=== PATIENT | male | born 1990 | race Two or more races ===

== ENCOUNTER 2018-08-14 12:45 | Emergency (ER) | payer SELFPAY ==
[~2018-08-14] VITALS: Ht 170.2 cm; Wt 73.0 kg
[2018-08-14] MEDS ORDERED: LACTULOSE 20G/30ML UDC PO ONE (17:45)
[2018-08-14] MEDS ORDERED: MAGNESIUM CITRATE 300ML SOLUTION PO ONE ×2 (17:45→21:15)
[2018-08-14] MEDS ORDERED: MINERAL OIL 30ML BOTTLE PO ONE (17:45)
[2018-08-14 18:52] LABS: BASOPHILS % 0.2 % (0.0-2.0); EOSINOPHILS % 0.6 % (0.0-5.0); HEMATOCRIT. 45.7 % (42.0-52.0); HEMOGLOBIN. 14.9 g/dL (14.0-18.0); LYMPHOCYTES % 12.1 % (20.0-50.0); MEAN CORPUSCULAR HEMOGLOBIN 30.2 pg (28.0-32.0); MEAN CORPUSCULAR VOLUME 92.8 fL (80.0-94.0); MEAN PLATELET VOLUME 7.7 fl (7.4-10.4); MONOCYTES % 9.8 % (2.0-8.0); NEUTROPHILS % 77.3 % (40.0-76.0); PLATELET 443 x1000/uL (130-400); RED BLOOD CELL COUNT 4.93 mill/uL (4.7-6.1); RED CELL DISTRIBUTION WIDTH 12.9 % (11.6-14.6)
[2018-08-14 19:01] LABS: CHLORIDE 99 mEq/L (98-107)
[2018-08-14] MEDS ORDERED: SODIUM POLYSTYRENE SULFONATE 15 G/60 ML BOT PO ONE (21:15)
[2018-08-14] MEDS ORDERED: SODIUM CHLORIDE 0.9% 1,000 ML IV ONE (21:15)
[2018-08-14] MEDS ORDERED: SODIUM POLYSTYRENE SULFONATE 15 G/60 ML BOT PO SCH (22:00)
[2018-08-14 23:30] VITALS: BP 141/102
== END 2018-08-14 23:35 | disposition home or self-care (01) ==
LOC: ER 14:09
DX: K59.00 Constipation, unspecified (principal); F12.10 Cannabis abuse, uncomplicated
CPT/HCPCS: 36415; 74018; 80053; 85025; 99284; J7030